=== PATIENT | male | born 1990 | race Caucasian/White ===

== ENCOUNTER 2024-02-08 06:28 | Day surgery (SDC) | payer BC, SELFPAY ==
[2024-02-08 11:15] VITALS: BP 150/88; BMI 26.8
[2024-02-08 11:35] VITALS: BMI 26.8
[2024-02-08] MEDS: NORMOSOL-R 1000 IV (11:40)
[2024-02-08] MEDS: CELEBREX 200 MG PO (11:46)
[2024-02-08] MEDS: TYLENOL 1000 MG PO (11:46)
[2024-02-08 16:23] VITALS: BP 133/84
[2024-02-08 16:30] VITALS: BP 124/80
[2024-02-08 16:45] VITALS: BP 125/79
[2024-02-08 17:00] VITALS: BP 121/79
== END 2024-02-08 17:16 | disposition home or self-care (01) ==
LOC: SDS 06:28
PROVIDERS: ATTENDING PHYSICIAN Orthopaedic Surgery
DX: L72.0 Epidermal cyst (principal); R22.2 Localized swelling, mass and lump, trunk
CPT/HCPCS: 11402; 88304

== ENCOUNTER 2024-07-28 06:20 | Day surgery (SDC) | payer BC, SELFPAY ==
[2024-07-28] VITALS (8 sets, daily range): BP systolic 128–152; BP diastolic 86–99; BMI 30.6
--- NOTE | 2024-07-28 07:10 | HP.FOC2 ---
Focused History & Physical
Chief Complaint
HPI:
Chief Complaint: Right inguinal hernia
HPI / Indication for Planned Procedure: Patient is a 34-year-old male recently seen in outpatient surgical patient secondary to approximately 1 year history of swelling in the right inguinal region. Swelling is always present upon standing.
Reduces all lying down. No symptoms suggestive of intermittent incarceration or obstruction.
Past surgical history notable for lap appendectomy 2014 with subsequent IR drainage of postoperative abscess. He has not had any recurrent infectious complications since.
Relevant Past Medical History: Negative
Relevant Social History: Negative
Relevant Family History: Negative
Relevant Past Surgical History: Positive for (Cyst on left shoulder area removed, tooth removal, laparoscopic appendectomy)
Review of Systems
Review of Pertinent Systems: All Systems Negative
Medication
See Medication form for detailed medications: Yes
Medication List (including Herbals & OTC):
multivitamin 1 tab PO DAILY 02/03/24
Medications Reviewed: Yes
Allergies and Reactions
Patient has Allergies: No
Noted Allergies and Reactions:
Allergy/AdvReac Type Severity Reaction Status Date / Time
No Known Allergies Allergy Verified 07/26/24 10:07
Pertinent Physical Exam
All Other Systems: Negative
Head/Neck: Normal
Lungs: Normal
Heart: Normal
Abdomen: Other (Reducible right inguinal hernia)
Extremities: Normal
Neurological: Normal
Diagnosis / Assessment
34-year-old male presenting for scheduled operative correction symptomatic right inguinal hernia
Plan / Procedure
Robotic assisted laparoscopic repair right inguinal hernia with mesh
Anesthesia/Sedation to be done by Anesthesia Provider: Yes
--- NOTE | 2024-07-28 07:12 | W.SUR.PREOP ---
Pre-Operative Surgical Note
-
I have examined this patient prior to the performance of the scheduled procedure.
The patient's condition is unchanged from the time of the current History and
Physical and the patient is able to undergo the scheduled procedure.
[2024-07-28] MEDS: TYLENOL 1000 MG PO (08:28)
--- NOTE | 2024-07-28 11:09 | W.IMMPOSTOP ---
Surgical Immed Post Op Note
-
Primary Surgeon: Kirstie
Assisting Surgeon: Shirin Merritt PA-C
Pre-op Diagnosis: Right inguinal hernia
Post-op Diagnosis: Right indirect inguinal hernia
Procedure Performed: Robotic assisted laparoscopic PATEL repair of right inguinal hernia with mesh; 3D max large mid weight
Anesthesia Type: GETA +0.25% Marcaine
Specimen / Cultures: None
Estimated Blood Loss: 12 mL
Complications: None immediate
Operative Findings: Right indirect inguinal hernia with hernia sac extending into the inguinal scrotal region. Rather dense peritoneal adhesions to spermatic cord likely reflective of previous history of having perforated appendicitis. Hernia sac
ligated and excised. 3D max large mid weight mesh repair secured to Guillermo's ligament with 2-0 Vicryl x 2. Peritoneal flap closed with 2-0 Monocryl STRATAFIX spiral suture.
The assistance of Shirin Dawn PA-C was required due to the complexity of the procedure. During the procedure Shirin Dawn PA-C assisted with port placement, robotic instrumentation and suture material exchanges, and closure of the surgical incision
sites. I was present for the entirety of the operative procedure.
--- NOTE | 2024-07-28 11:12 | OR.RPT ---
Operative Report
Operative Report
Date of operative procedure: 07/28/2024
Primary Surgeon: Clay Thacker MD
Assisting Surgeon: Shirin Dawn PA-C
Pre-op Diagnosis: Right inguinal hernia
Post-op Diagnosis: Right inguinal hernia, indirect
Procedure Performed: Robotic assisted laparoscopic PATEL repair right inguinal hernia with mesh; 3D max large mid weight
Anesthesia Type: GETA +0.25% Marcaine
Specimen / Cultures: None/none
Estimated Blood Loss: 12 mL
Complications: None immediate
Indications for operative procedure: Patient is a 34-year-old male recently seen in outpatient surgical patient secondary to approximately a 1 year history of swelling in the right inguinal region. Swelling is always present upon standing. Reduces
while lying down. No symptoms suggestive of intermittent incarceration or obstruction. Physical examination confirmed the presence of a readily apparent right inguinal hernia. Past surgical history notable for lap appendectomy 2014 with
subsequent IR drainage of postoperative abscess. He has not had any recurrent infectious complications since. I reviewed with the patient treatment options for his right inguinal hernia and he wished to pursue operative correction. We discussed
various operative approaches to repair and have elected to proceed with a robotic assisted laparoscopic right inguinal herniorrhaphy with mesh.
Brief summary of operative Findings: Right indirect inguinal hernia with hernia sac extending into the inguinal scrotal region. Rather dense peritoneal adhesions to spermatic cord likely reflective of previous history of having perforated
appendicitis. Hernia sac ligated and excised. 3D max large mid weight mesh repair secured to Guillermo's ligament with 2-0 Vicryl x 2. Peritoneal flap closed with 2-0 Monocryl STRATAFIX spiral suture.
Operation detail: The patient was identified in the preoperative holding area. I confirmed the surgical site and side with the patient preoperatively which was then marked and initialed by myself. He was interviewed by the anesthesia and nursing
staff then brought back to the operating room. The patient was placed on the operating table in supine position. The bilateral upper extremities were carefully padded and tucked at the side utilizing the arm guard positioning system. Pneumatic
compression boots were on the bilateral lower extremities. Following induction of general endotracheal anesthesia the patient was administered Ancef 2 g IV for prophylactic antibiotic coverage. The patient's anterior abdominal wall was now widely
and sterilely prepped with ChloraPrep and then draped in the usual manner. The surgical timeout was completed and the procedure was confirmed.
I initially proceeded with Veress needle insufflation in the left subcostal midclavicular line location. Once insufflated to 12 mmHg pressure then a left midclavicular line 8 mm trocar was then placed. The robotic scope was inserted, there was no
evidence of iatrogenic injury from access. The Veress needle was withdrawn. An epigastric 8 mm trocar was placed just to the right of the midline. A right midclavicular line 8 mm trocar was placed. The patient was then transition into
Trendelenburg to expose the inguinal/pelvic space and the robot was docked.
At the surgeon console inspection of the pelvis confirmed the presence of a right indirect inguinal hernia, moderate defect but hernia sac protruding into the inguinal scrotal space. There were no additional incidental intra-abdominal findings. No
significant visceral adhesions related to previous history of appendectomy.
I initially began with creation of a peritoneal flap at the level of the right ASIS to the right medial umbilical ligament. The preperitoneal plane was now established along the length of the flap and developed inferiorly down to the inguinal
space. The medial dissection proceeded until the notch of the pubic symphysis was exposed at the midline followed by Guillermo's ligament on the right side. Guillermo's ligament was now cleared through the direct and femoral space; both of which were
normal. The underside of Guillermo's ligament was exposed as well. The peritoneal flap was now mobilized laterally down to the internal ring. The hernia sac was then grasped and begun to be reduced out of the inguinal canal from an anterior lateral
to anterior medial approach. I carefully continued to reduce the hernia sac off of the cremasteric fibers and cord contents all the way to the apex of the hernia sac. Next the hernia sac was now reduced off of its posterior attachments with
identification of the vas and the spermatic cord vessels. The hernia sac was quite adherent to the cord structures and therefore utilized a combination of monopolar scissor dissection/cautery as well as blunt dissection with graspers. The hernia
sac dissection continued back proximally past the turn in the right vas deferens and then overlying the right iliac space to meet up with the medial dissection. The posterior dissection continued until there was wide separation between the vas and
the spermatic cord vessels. The dissection continued posterior laterally for full exposure of the myopectineal orifice. There was a small cystic peritoneal structure more proximally at the base of the cecum overlying the more proximal spermatic
cord vessels the peritoneum was not mobilized beyond this and it did not affect mesh placement with positioning.
With the myopectineal orifice now completely exposed hemostasis was confirmed. A 3D max large mid weight mesh was utilized for repair. The mesh was positioned parallel to the ileopubic tract. It was secured at 2 separate locations inferior
medially on Guillermo's ligament with 2 simple interrupted 2-0 Vicryl sutures. The patient was now begun to be taken out of Trendelenburg to confirm that the posterior aspect of the mesh was lying flat and that there was no shelling or undermining of
the mesh by the peritoneal edge. The peritoneal flap was now closed with a 2-0 Monocryl STRATAFIX spiral suture with a running [place] type stitch. The hernia sac was ligated with a 2-0 Vicryl suture ligature due to the size of it.
A flexible suction catheter was placed through an 8 mm trocar and introduced into the peritoneal flap to evacuate the air out of the preperitoneal space. This again confirmed good positioning of the inguinal hernia mesh. There was no shelling or
folding of the mesh and no undermining and mesh by the peritoneal edge. The peritoneal covering of the mesh was completely intact.
At this point the robot was undocked. All sponge instrument and needle counts were confirmed to be correct x 2. The CO2 insufflation was now carefully evacuated out of the abdominal cavity. The trocar sites were removed as well as the flexible
suction catheter. Skin was closed with 4-0 Monocryl. Sterile surgical glue dressings were applied. The patient tolerated the procedure well and was transferred to the recovery unit for routine postoperative monitoring.
The assistance of Shirin Dawn PA-C was required due to complexity of surgery. During the procedure Shirin Dawn PA-C assisted with port placement, robotic instrumentation and suture material exchanges as well as closure of the surgical sites. I
was present for the entirety of the operative procedure.
--- NOTE | 2024-07-28 11:38 | SUR.PHASEI ---
patient awake and alert, Dr Thacker visits - reviewed surgery and plan of care
[2024-07-28] MEDS: DILAUDID 0.25 MG IV (11:47)
== END 2024-07-28 13:17 | disposition home or self-care (01) ==
LOC: SDS 06:20
PROVIDERS: ATTENDING PHYSICIAN Surgery
DX: K40.90 Unilateral inguinal hernia, without obstruction or gangrene, not specified as recurrent (principal)
CPT/HCPCS: 49650; C1781